=== PATIENT | male | born 1990 | race Caucasian/White ===

== ENCOUNTER 2016-09-04 20:28 | Emergency (ER) | payer BC, OTHER ==
[~2016-09-04] VITALS: Ht 175.3 cm; Wt 92.3 kg
[2016-09-04 20:37] VITALS: TEMP 37.2; O2SAT 97; Ht 175.3 cm; Wt 92.3 kg
[2016-09-04] MEDS ORDERED: SODIUM CHLORIDE 0.9% 1000ML 1,000 ML IV STA (20:45)
[2016-09-04 21:01] LABS: BASO % 0.2 %; BASO ABS # 0.02 K/uL (0-0.2); COMPLETE YES; EOS % 1.5 %; HEMATOCRIT 43.4 % (42-52); IG% 0.1 %; LYMPH % 9.4 %; LYMPH ABS # 0.76 K/uL (1.2-3.4); MEAN CELL VOLUME 92.1 fL (80-100); MEAN CORPUSCULAR HEMOGLOBIN 31.2 pg (25-34); MEAN CORPUSCULAR HGB CONC 33.9 g/dl (32-36); MONO % 16.5 %; NEUT % 72.3 %; PLATELET COUNT 243 K/uL (130-400); RED BLOOD COUNT 4.71 M/uL (4.7-6.1); WHITE BLOOD COUNT 8.07 K/uL (4.8-10.8)
[2016-09-04 21:37] LABS: BUN/CREATININE RATIO 9.9 (10-20); CREATININE 0.96 mg/dl (0.60-1.40); POTASSIUM 3.8 mmol/L (3.5-5.1)
[2016-09-04 21:57] LABS: CALCIUM 9.1 mg/dl (8.5-10.1)
[2016-09-04] MEDS ORDERED: MULT-506 PO (22:08)
[2016-09-04] MEDS ORDERED: MELATAB2 PO (22:08)
[2016-09-04] MEDS ORDERED: PROM25TA9 PO (22:08)
[2016-09-04] MEDS ORDERED: NLXI4X IM (22:08)
[2016-09-04] MEDS ORDERED: MAALOX PO (22:08)
[2016-09-04] MEDS ORDERED: MOMLX PO (22:08)
[2016-09-04] MEDS ORDERED: IMD2X PO (22:08)
[2016-09-04] MEDS ORDERED: CTP1 PO (22:08)
[2016-09-04] MEDS ORDERED: METO25TA56 PO (22:08)
[2016-09-04] MEDS ORDERED: THIA100T11 PO (22:08)
[2016-09-04] MEDS ORDERED: IBUP600T44 PO (22:08)
[2016-09-04] MEDS ORDERED: FOLI1TAB7 PO (22:08)
[2016-09-04] MEDS ORDERED: DOXE10CA PO (22:08)
[2016-09-04] MEDS ORDERED: HYDR50CA2 PO (22:08)
[2016-09-04] MEDS ORDERED: ACET-1311 PO (22:08)
[2016-09-04] MEDS ORDERED: FLUO10TA PO (22:08)
[2016-09-04] MEDS ORDERED: ATOM40CA PO (22:08)
[2016-09-04 22:12] LABS: BENZODIAZEPINE, URINE POS (NEG); COCAINE,URINE NEG (NEG); PHENCYCLIDINE, URINE NEG (NEG)
[2016-09-04 23:05] VITALS: PULSE 100; O2SAT 96
--- NOTE | 2016-09-04 23:10 | EMERGENCY ROOM VISIT NOTE ---
History Report prepared by Swapnaibjimmy: Whit Palacio Under the Supervision of: Dr. Gunner Ontiveros D.O. First contact with patient: 20:31 Chief Complaint: SEIZURE Stated Complaint: SEIZURE History of Present Illness The patient is a 26 year old male who presents to the Emergency Room with complaints of a seizure that occurred prior to arrival. He was brought to the ED via EMS. The patient thinks the seizure lasted for approximately 1 minute and reports he felt "lightheaded" right before the symptoms started. He denies biting his tongue or any bowel or bladder incontinence. He also denies hitting his head or any nausea or vomiting. He notes he was admitted for alcohol abuse at [facility] 11 days ago. 2 weeks ago, he experienced his first ever seizure in [place], [place], while he was being transferred to [facility]. He had a CT scan and states the hospital in [facility] told him the seizure was likely from "alcohol withdrawal". His last drink of alcohol was just under 2 weeks ago. The patient states he feels "fine" here in the ED, but does admit to bruising his left knee while playing football a few days ago. He also admits to some recent anxiety and states he has not been sleeping well at night. Source of History: patient Onset: RESIDENT MANAGER Position: other (global) Quality: other (seizure activity) Timing: resolved Modifying Factors (Worsening): other (ETOH withdrawal) Review of Systems See HPI for pertinent positives & negatives. A total of 10 systems reviewed and were otherwise negative. Past Medical & Surgical Medical Problems: (1) Anxiety (2) Seizure Social History Alcohol Use: heavy Drug Use: none Marital Status: single Housing Status: lives with family Occupation Status: employed Current/Historical Medications Scheduled Atomoxetine (Strattera), 40 MG PO QAM Fluoxetine Hcl (Pmdd) (Sarafem), 30 MG PO QAM Folic Acid (Folvite), 1 MG PO QAM Metoprolol Tartrate (Lopressor) (Lopressor), 25 MG PO BID Multivitamin (Multivitamin), 1 TAB PO DAILY Thiamine Hcl (Vitamin B-1), 100 MG PO QAM Scheduled PRN Acetaminophen (Tylenol), 325-650 MG PO Q4 PRN for Pain Clonidine HCl (Clonidine HCl), 0.1 MG PO BID PRN for PRN Doxepin (Sinequan), 10 MG PO HS PRN for Insomnia Hydroxyzine Pamoate (Vistaril), 50 MG PO TID PRN for Anxiety Ibuprofen (Motrin), 600-1,200 MG PO Q4 PRN for Pain Loperamide Hcl (Imodium), 4 MG PO DAILY PRN for PRN Magnesium Hydroxide (Milk of Magnesia), 30 ML PO DAILY PRN for LOS Melatonin (Melatonin Maximum Strengt), 5 MG PO HS PRN for Sleep Naloxone HCl (Naloxone HCl), 0.4 MG IM UNKNOWN PRN for SEDATION Promethazine Hcl (Phenergan), 25 MG PO Q6H PRN for Nausea [Maalox], 30 ML PO TID PRN for LOS Allergies Coded Allergies: No Known Allergies (Unverified , 09/04/16) Physical Exam Vital Signs Date Time Temp Pulse Resp B/P Pulse Ox O2 Delivery O2 Flow Rate FiO2 09/04/16 21:30 149/91 09/04/16 21:28 110 27 98 09/04/16 21:05 124/93 09/04/16 20:58 123 27 09/04/16 20:37 37.2 126 18 124/88 96 Room Air 09/04/16 20:37 97 Room Air 09/04/16 20:34 130 09/04/16 20:31 124/88 Physical Exam CONSTITUTIONAL/VITAL SIGNS: Reviewed / noted above. GENERAL: Non-toxic in appearance. INTEGUMENTARY: Warm, dry, and [address]. HEAD: Normocephalic. EYES: without scleral icterus or trauma. ENT/OROPHARYNX: clear and moist. LYMPHADENOPATHY/NECK: Is supple without lymphadenopathy or meningismus. RESPIRATORY: Lungs clear and equal. CARDIOVASCULAR: Regular rate and rhythm. GI/ABDOMEN: Soft and nontender. No organomegaly or pulsatile mass. No rebound or guarding. Normal bowel sounds. EXTREMITIES: Warm and well perfused. BACK: No CVA tenderness. NEUROLOGICAL: Intact without focal deficits. PSYCHIATRIC: normal affect. MUSCULOSKELETAL: Normally developed with good muscle tone. Medical Decision & Procedures Laboratory Results 09/04/16 20:47 Red Blood Count 4.71, Mean Corpuscular Volume 92.1, Mean Corpuscular Hemoglobin 31.2, Mean Corpuscular Hemoglobin Concent 33.9, Mean Platelet Volume 10.0, Neutrophils (%) (Auto) 72.3, Lymphocytes (%) (Auto) 9.4, Monocytes (%) (Auto) 16.5, Eosinophils (%) (Auto) 1.5, Basophils (%) (Auto) 0.2, Neutrophils # (Auto ) 5.83, Lymphocytes # (Auto) 0.76, Monocytes # (Auto) 1.33, Eosinophils # (Auto ) 0.12, Basophils # (Auto) 0.02 09/04/16 20:47 Test 09/04/16 20:35 09/04/16 20:47 09/04/16 21:00 09/04/16 21:03 Bedside Glucose 133 mg/dl (70-99) White Blood Count 8.07 K/uL (4.8-10.8) Red Blood Count 4.71 M/uL (4.7-6.1) Hemoglobin 14.7 g/dL (14.0-18.0) Hematocrit 43.4 % (42-52) Mean Corpuscular Volume 92.1 fL (80-100) Mean Corpuscular Hemoglobin 31.2 pg (25-34) Mean Corpuscular Hemoglobin Concent 33.9 g/dl (32-36) Platelet Count 243 K/uL (130-400) Mean Platelet Volume 10.0 fL (7.4-10.4) Neutrophils (%) (Auto) 72.3 % Lymphocytes (%) (Auto) 9.4 % Monocytes (%) (Auto) 16.5 % Eosinophils (%) (Auto) 1.5 % Basophils (%) (Auto) 0.2 % Neutrophils # (Auto) 5.83 K/uL (1.4-6.5) Lymphocytes # (Auto) 0.76 K/uL (1.2-3.4) Monocytes # (Auto) 1.33 K/uL (0.11-0.59) Eosinophils # (Auto) 0.12 K/uL (0-0.5) Basophils # (Auto) 0.02 K/uL (0-0.2) RDW Standard Deviation 41.0 fL (36.4-46.3) RDW Coefficient of Variation 12.0 % (11.5-14.5) Immature Granulocyte % (Auto) 0.1 % Immature Granulocyte # (Auto) 0.01 K/uL (0.00-0.02) Anion Gap 9.0 mmol/L (3-11) Est Creatinine Clear Calc Drug Dose 133.2 ml/min Estimated GFR () 127.7 Estimated GFR (Non- 110.2 BUN/Creatinine Ratio 9.9 (10-20) Calcium Level 9.1 mg/dl (8.5-10.1) Urine Opiates Screen NEG (NEG) Urine Methadone, Qualitative NEG (NEG) Urine Barbiturates NEG (NEG) Urine Phencyclidine (PCP) Level NEG (NEG) Ur Amphetamine/Methamphetamine NEG (NEG) MDMA (Ecstasy) Screen NEG (NEG) Urine Benzodiazepines Screen POS (NEG) Urine Cocaine Metabolite NEG (NEG) Urine Marijuana (THC) POS (NEG) Ethyl Alcohol mg/dL < 3.0 mg/dl (0-3) Laboratory results as stated above per my review. Medications Administered Medications (Trade) Dose Ordered Sig/Olga Route Start Time Stop Time Status Last Admin Dose Admin Sodium Chloride (Nss 1000ml) 1,000 ml @ 999 mls/hr Q1H1M STAT IV 09/04/16 20:45 09/04/16 21:45 DC 09/04/16 21:09 999 MLS/HR ED Course 2034: Previous medical records were reviewed. The patient was evaluated in room C11. A complete history and physical examination was performed. 2044: NSS 1000 ml @ 999 mls/hr IV. 0: I reevaluated the patient. He is feeling well. I discussed his results and discharge instructions and he verbalized complete understanding and agreement. Medical Decision Differential includes acute cardiac dysrhythmia, microinfarction, CVA, TIA, dehydration, anemia, electrolyte disturbance, seizure, trauma, intracranial bleeding, acute vascular catastrophe, thoracic aortic dissection, PE, abdominal aortic aneurysm rupture, ectopic rupture. This is a 26-year-old male who presents to the ED with a chief complaint of a possible seizure. The patient states that he felt lightheaded before he collapsed. He is at [facility]. The patient reports that they told him he had a seizure for about a minute. He did not have any postictal. He had no incontinence and did not bite his tongue. The patient reports being admitted to [facility] 2 weeks ago after he collapsed. He was evaluated for seizures and states that he had a normal EEG at that time. He also had imaging studies of his brain additional blood work. He was ultimately sent to [facility] for alcohol addiction. The patient states his last alcoholic beverage was about 11 days ago. He denies any other symptoms. He is asymptomatic at this time. His exam was normal. Vital signs are stable. CBC and PRP are normal. Tox screen was positive for marijuana and benzodiazepines. Alcohol was negative. The patient was initially tachycardic on exam. This improved during his stay. He was felt to be stable for discharge. He was treated with normal saline IV. Impression Primary Impression: Syncope Scribe Attestation The scribe's documentation has been prepared under my direction and personally reviewed by me in its entirety. I confirm that the note above accurately reflects all work, treatment, procedures, and medical decision making performed by me. Departure Information Dispostion Home / Self-Care Referrals No Doctor, Assigned (PCP) Patient Instructions My [facility] Additional Instructions Follow-up with your doctor for further care and evaluation in 1-2 days. Return to the emergency department for worsening or new symptoms or any concerns. You have been examined and treated today on an emergency basis only. This is not a substitute for, or an effort to provide, complete comprehensive medical care. It is impossible to recognize and treat all injuries or illnesses in a single emergency department visit. It is therefore important that you follow up closely with your doctor. Call as soon as possible for an appointment.
[2016-09-04 23:30] VITALS: BP 141/72
[2016-09-07 22:06] LABS: HYDROXYETHYLFLURAZEPAM CONF NEGATIVE NG/ML (CUTOFF=50); HYDROXYMIDAZOLAM NEGATIVE NG/ML (CUTOFF=50); HYDROXYTRIAZOLAM CONF NEGATIVE NG/ML (CUTOFF=50); TEMAZEPAM CONF 70 NG/ML (CUTOFF=50)
== END 2016-09-04 23:42 | disposition home or self-care (01) ==
LOC: C.EDC 20:31
DX: R55 Syncope and collapse (principal); G40.909 Epilepsy, unspecified, not intractable, without status epilepticus; F41.9 Anxiety disorder, unspecified; Z79.899 Other long term (current) drug therapy